=== PATIENT | female | born 1995 | race African-American/Black ===

== ENCOUNTER 2025-04-14 14:45 | Emergency (ER) | payer SELFPAY ==
[2025-04-14 14:50] VITALS: BP 136/73; PULSE 87; RESP 16; TEMP 36.3; O2SAT 100; BMI 26.6
--- NOTE | 2025-04-14 14:53 | ED_ITS ---
HPI - General Adult General Chief complaint: General Medical Stated complaint: headaches Time Seen by Provider: 04/14/25 16:52 Source: patient and surgical coordinator (audio ) Limitations: language barrier History of Present Illness HPI narrative: 29-year-old female, Georgian Creole speaking, presents for evaluation of not feeling well . patient states that her last menses was on February 18. She does have a history of irregular menses. She did not get her period in March. Today because she just had a general sense of not feeling well she presents in the emergency department. She is . She is not currently on any control medications or using any barrier methods. Patient states she has been having headaches that are intermittent. She does not have her current headache at this time. In addition, patient reports mid back pain which has also been present for some time. She reports it mild at this time and is worse with movement. According to triage no, she initially reported chest pain and shortness of breath. However she reports that this is not the case and does not have these current symptoms. She denies any fevers or chills. She denies any abdominal pain. She does report some vaginal discharge which she does report is relatively normal. She does have some dysuria. No vaginal bleeding or hematuria. She has been eating and drinking normally. Related Data Previous Rx's ?Medication ?Instructions ?Recorded cephalexin 500 mg capsule 500 mg PO QID #28 caps 04/14 vit 168-iron 27 mg-folic 1 cap PO DAILY #30 c aps 04/14/25 acid 800 mcg-omega3 235 mg capsule (One-A-Day -1) Allergies Allergy/AdvReac Type Severity Reaction Status Date / Time No Known Allergies Allergy Verified 04/14/25 15:00 Review of Systems 2 Review of Systems: Yes all other systems are reviewed and are negative Cardiovascular: Cardiovascular: Denies chest pain Respiratory: Respiratory: Denies cough Gastrointestinal: Gastrointestinal: Denies abdominal pain PMF Social History Social History Advance Directives: No Advance Directives Information Provided: Yes Do you have a plan to hurt others: No Plan Physical Exam ED Vital Signs: Vital Signs - 24 hr 04/14/25 14:50 04/14/25 16:52 04/14/25 17:22 Temperature 97.4 F 98.8 F 98.4 F Pulse Rate 87 60 74 Respiratory Rate 16 18 15 Blood Pressure 136/73 122/60 124/61 Pulse Oximetry 100 100 100 Oxygen Delivery Method Room Air Room Air Room Air BMI result Body Mass Index 26.6 Const General: cooperative, alert and awake Resp Other: Lung sounds clear throughout. No intercostal or accessory muscle use. Cardio Other: Regular rate and rhythm. GI Other: Abdomen is soft and nontender throughout. No peritoneal signs. No CVAT. Extrem Other: Human Resources Designate is 5/5 bilaterally. Full range of motion of all joints. No spinous, paraspinous or paravertebral tenderness. No lumbar muscle tenderness. Course Course Course Narrative: This is a rapid medical exam performed by Curtis Garcia NP: Additional HPI, ROS, PE not included below will be deferred to primary provider. Patient is a 29-year-old Georgian Creole speaking female presenting to the emergency department with complaint of shortness of breath and lower abdominal pain for the past few days. At times has had acid reflux as well as pain to back. Plan: labs, UA, viral panel, CXR Reevaluation(s) Reevaluation #1: 7:00 p.m. once again reviewed all labs with the patient through a [employer] audio surgical coordinator. Patient confirms she has a history of anemia. She does not take medication for this. H&H is mildly low today. Of note, patient's glucose is elevated at 172 and there is also glucose in her urine. Patient denies any history of diabetes nor family history. She does report that she drank a large amount of soda before arrival to the emergency department. Reviewed discharge instructions including follow up with a PCP as well as PCP options. Patient also does not have an OBGYN, referral has also been provided as well as additional resources. Patient will be discharged with vitamins. However the patient did report that this is not unintended and would like to consider termination. [facility] also [facility]. Keflex for possible UTI. Reviewed all discharge instructions with [employer] surgical coordinator. Patient expresses understanding of all discharge instructions and has no further questions at this time. Medical Decision Making Medical Decision Making MDM Narrative: 29-year-old female with a general sense at this time of not feeling well found to have positive beta quant of 152. Patient unaware of positive test. She did not take 1 at home. Patient immediately reports that this is not a desired . Remainder of labs are unremarkable. Urinalysis pending at this time. She does not have an OBGYN. Patient will be discharged with OB referral as well as vitamins. Differential Diagnosis Differential Diagnoses: The differential diagnosis associated with the presentation includes Ectopic Early UTI Dysuria Lab Data MDM Lab Attestation statement: I reviewed the patient's lab results. 04/14/25 15:10 04/14/25 15:10 Labs: Lab Results 04/14/25 04/14/25 Range/Units 15:10 17:33 WBC 5.6 (4.8-10.8) X10*3/uL RBC 3.86 L (4.20-5.50) X10*6/uL Hgb 11.0 L (12.0-16.0) g/dl Hct 33.5 L (37.0-47.0) % MCV 86.8 (80.0-98.0) fL MCH 28.5 (27.0-33.0) pg MCHC 32.8 (31.0-35.0) g/dl RDW 15.3 (11.0-16.0) % Plt Count 290 (160-400) X10*3/uL MPV 10.0 (9.4-12.3) fL Immature Gran % (Auto) 0.2 (0.0-0.4) % Neut % (Auto) 47.4 (45-73) % Lymph % (Auto) 36.0 (20-40) % [facility] [facility] % (Auto) 13.0 H (2-11) % Eos % (Auto) 3.0 (0-4) % Baso % (Auto) 0.4 (0-2) % Lymph # (Auto) 2.0 (1.2-4.9) X10*3/uL [facility] # (Auto) 0.7 (0.1-1.2) X10*3/uL Eos # (Auto) 0.2 (0.0-0.4) X10*3/uL Baso # (Auto) 0.0 (0.0-0.2) X10*3/uL Abs Immat Gran (auto) 0.01 (0.00-0.03) X10*3/uL Absolute Neuts (auto) 2.7 (2.0-8.3) x10*3/uL Absolute Nucleated RBC 0.000 (0.0-0.012) X10*3/uL Nucleated RBC % (auto) 0.0 (0.0-0.2) /100WBC Sodium 137 (135-145) mmol/L Potassium 4.0 (3.3-5.1) mmol/L Chloride 108 (96-108) mmol/L Carbon Dioxide 23 (22-29) mmol/L Anion Gap 10 L (12-20) BUN 12 (9-16) mg/dL Creatinine 0.75 (0.5-1.4) mg/dL Estim Creat Clear Calc 113.4 Estimated GFR > 60 Random Glucose 172 H (60-115) mg/dL Calcium 9.2 (8.4-10.2) mg/dL Total Bilirubin 0.1 (0.0-1.0) mg/dL AST 23 (5-31) U/L ALT 24 (0-31) U/L Alkaline Phosphatase 66 (39-117) U/L Total Protein 7.5 (6.5-8.0) g/dL Albumin 4.3 (3.5-5.0) g/dL Beta HCG, Quant 122 mIU/mL Urine Color Yellow Urine Appearance Clear Urine pH 6.0 (5.0-9.0) Ur Specific [place] 1.025 (1.005-1.025) Urine Protein Trace (Neg-Trace) mg/dL Urine Glucose (UA) 250 H (Negative) mg/dL Urine Ketones Trace (Negative) mg/dL Urine Blood Negative (Negative) Urine Nitrite Negative (Negative) Ur Leukocyte Esterase Trace H (Negative) Urine RBC 0-2 (0-2) /HPF Urine WBC 6-10 H (0-5) /HPF Ur Squamous Epith Cells 6-10 (0-2) /HPF Urine Bacteria 3+ (None Seen) Hyaline Casts 0-2 (0-2) /LPF Influenza Type A (PCR) NEGATIVE (Negative) Influenza Type B (PCR) NEGATIVE (Negative) RSV RNA Qual (PCR) NEGATIVE (Negative) SARS-CoV-2 RNA (RT-PCR) NEGATIVE (Negative) Prescription Management I considered prescription management with: Antibiotic Discharge Plan Discharge Clinical Impression: Urinary tract infection affecting Qualifiers: Weeks of gestation: less than 8 weeks Qualified Code(s): Z3A.01 - Less than 8 weeks gestation of Patient Disposition: Home, Self-Care Instructions: (ED) Additional Instructions: Your anemia, hematocrit is 33.5% today (normal is 37-47%). Your urine test today shows you may have infection in your urine. You are being treated with antibiotics, Keflex. 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 Finish all medication as directed. vitamins as directed. Follow up with OBGYN referral to follow your . You may also [facility] with [facility] [phone] Your sugar was elevated today. This may be because you drank soda. This should be further evaluated by your primary care provider. A referral has been provided. Watch for severe pain, vaginal bleeding, or any other concern return immediately to the emergency department. Follow-up with your primary care provider. Call this week to schedule a follow- up appointment. A referral sheet has been provided to you. Return to the emergency department if you have any worsening of symptoms, or any concerns. Get well soon! Prescriptions: New cephalexin 500 mg capsule 500 mg PO QID Qty: 28 0RF One-A-Day -1 27 mg iron- 800 mcg-235 mg capsule 1 cap PO DAILY Qty: 30 2RF Referrals: Rajesh Borrero MD [Physician, MILLWORK ESTIMATOR] Clinical Impression: Print Language: Ramses Simms
[2025-04-14 15:14] LABS: MANUAL DIFF FLAG NO
[2025-04-14 15:15] LABS: Hematocrit 33.5 % (37.0-47.0); Hemoglobin 11.0 g/dl (12.0-16.0); Imm Gran Abs Auto 0.01 X10*3/uL (0.00-0.03); Imm Gran Pct Auto 0.2 % (0.0-0.4); Lymphocytes Absolute Auto 2.0 X10*3/uL (1.2-4.9); Mean Corpuscular HGB Conc 32.8 g/dl (31.0-35.0); Mean Corpuscular Hemoglobin 28.5 pg (27.0-33.0); Mean Corpuscular Volume 86.8 fL (80.0-98.0); NRBC Abs Auto 0.000 X10*3/uL (0.0-0.012); NRBC Pct Auto 0.0 /100WBC (0.0-0.2); Platelet Count 290 X10*3/uL (160-400); Red Blood Count 3.86 X10*6/uL (4.20-5.50); White Blood Count 5.6 X10*3/uL (4.8-10.8)
[2025-04-14 15:40] LABS: Alanine Aminotransferase 24 U/L (0-31); Albumin Level 4.3 g/dL (3.5-5.0); Alkaline Phosphatase 66 U/L (39-117); Anion Gap 10 (12-20); Aspartate Amino Transferase 23 U/L (5-31); Blood Urea Nitrogen 12 mg/dL (9-16); Calcium 9.2 mg/dL (8.4-10.2); Carbon Dioxide 23 mmol/L (22-29); Chloride 108 mmol/L (96-108); Creatinine Clr Calc Pharmacy 113.4; Estimated Glomerular Filt Rate > 60; Potassium 4.0 mmol/L (3.3-5.1); Sodium 137 mmol/L (135-145); Total Protein 7.5 g/dL (6.5-8.0)
[2025-04-14 16:01] LABS: Resp Syncy Virus RNA Qual PCR NEGATIVE (Negative); SARS COV2 PCR INHOUSE NEGATIVE (Negative)
[2025-04-14 16:52] VITALS: BP 122/60; PULSE 60; RESP 18; TEMP 37.1; O2SAT 100
[2025-04-14 17:22] VITALS: BP 124/61; PULSE 74; RESP 15; TEMP 36.9; O2SAT 100
[2025-04-14 17:39] LABS: Appearance Urine Clear; Glucose Urine UA 250 mg/dL (Negative); PH 6.0 (5.0-9.0); Specific Gravity - Urine 1.025 (1.005-1.025); UMIC TRIGGER UACC YES
[2025-04-14 18:01] LABS: UACC Culture Trigger YES
[2025-04-14 19:30] VITALS: BP 121/71; PULSE 73; RESP 18; TEMP 523.8; TEMP 974.8; O2SAT 95
== END 2025-04-14 19:31 | disposition home or self-care (01) ==
PROVIDERS: Registered Nurse Emergency; Emergency Provider Emergency Medicine
DX: O23.41 Unspecified infection of urinary tract in pregnancy, first trimester (principal); N39.0 Urinary tract infection, site not specified; R10.2 Pelvic and perineal pain; Z3A.08 8 weeks gestation of pregnancy; Z03.818 Encounter for observation for suspected exposure to other biological agents ruled out; Z79.899 Other long term (current) drug therapy
CPT/HCPCS: 80053; 81001; 84702; 85025; 87086; 87637; 99283